=== PATIENT | female | born 2000 | race Asian ===

== ENCOUNTER 2024-10-31 12:56 | Outpatient (AMB) | payer OTHER, SELFPAY ==
--- OUTSIDE RECORDS SUMMARY | 2024-10-31 12:58 | XMS_ITS ---
Author Organization [facility] Address [address] [place] [address] Care Team Providers Care First Assistant Name Role Phone Breana Kumar MD Primary Care Provider Felicia Mcmillan Unavailable [phone] Allergies No Known Allergies REASON FOR VISIT Pcp-05/02/24, Wart(s) Social History Tobacco Use: Social History Observation Description Date Details (start date - stop date) Never Smoker NA - NA Tobacco Use/Smoking Question Answer Notes Are you a: nonsmoker Additional Findings: Tobacco Non-User Current no n-smoker Alcohol Screen Question Answer Notes Did you have a drink containing alcohol in the p ast year? Yes Points 0 Interpretation Negative Tobacco use other than smoking: Question Answer Notes Are you an other tobacco user? No Problems Problem Type SNOMED Code ICD Code Onset Dates Problem Status W/U Status Risk Notes Problem Plantar wart (00457259) Plantar wart (B07.0) Active confirmed Vital Signs Height 5 ft 7 in in 09/10/2024 Weight 105 lbs lbs 09/10/2024 BMI 16.44 kg/m2 09/10/2024 Blood pressure systolic 102 mm Hg 09/10/20 24 Blood pressure diastolic 67 mm Hg 024 Encounters Encounter Location Date Provider Diagnosis [facility] [address] [place] [address] 09/10/2024 Felicia Garcia Left foot pain M79.672 and Plantar wart B07.0 Assessments Encounter Date Diagnosis (ICD Code) Assessment Notes Treatment Notes Treatment Clinical Notes Section Notes 09/10/2024 Left foot pain (ICD-10 - M79.672) 09/10/2024 Plantar wart (ICD-10 - B07.0) Plan Of Treatment Next Appt Details Follow Up: prn, Reason: Procedure Notes * Category Sub-Category Detail Notes Wart Treatment Procedure Verruca, as desc ribed in exam, were debrided to pin- point bleeding margins with sterile 15 surgical blade, silver nitrate chemocautery applied, recomm. immune-boosting meds such as zinc,Pt defers any other forms of tx Progress Notes * Rey LINKOB:1999 (24 yo F)Acc No.[id number]:09/10/2024 Progress Notes Patient:?Sudha LINK Provider:?Felicia Garcia DPM :2000???Age:24 Y???Sex:Female D ate:09/10/2024 Address:[address] [place] [address] Pcp:Breana Kumar MD Subjective: * Chief Complaints: * ???Pcp-05/02/24Wart(s) * HPI: ???Skin problems:?Pt States PCP Visit: ?DATE?05/02/2024 ?Location:?Bottom, Forefoot, Left.?Aggravated by:?standing.? * ROS:?General/Constitutional:?Nausea?denies.?Vomiting?denies.?Hunger Thirst?denies.?Loss appetite?denies.?Chills?denies.?Fatigue?denies.?Fever?denies.?Night Sweats?denies.?Unexplained weight loss?denies.?Unexplained weight gain?denies.?HEENTM:?Dentures?denies.?Dizziness?denies.?Glasses/contacts?denies.?Retinopathy?de nies.?Blurred/double vision?denies.?TMJ?denies.?Discharge/drainage?denies.?Implants?denies.?Sore throat?denies.?Dental implants?denies.?Hard of hearing ?denies.?Difficulty chewing/swallowing/speaking?denies.?Nose bleeds?denies.?Sore mouth?denies.?Respiratory:?On Oxygen?denies.?Pneumonia/pleurisy?denies.?Bronchitis?denies.?Emphysema?denies.?C oughing?denies.?Cough blood?denies.?Shortness of breath?denies.?Wheezing?denies.?Cardiovascular:?Pacemaker?denies.?MVP?denies.?WPW?denies.?CHF?denies.?Heart attack?denies.?Septal defect?denies.?Rapid beat?denies.?Chest pain ?denies.?Atrial Fib.?denies.?Murmur/Palpitations?denies.?Gastrointestinal:?Hemorrhoids?denies.?Stomach/Abdominal pain?denies.?Dark blood stool?denies.?Irritable bowel ?denies.?Constipation?denies.?Diarrhea?denies.?Hematology:?Swelling?denies.?Clots?denies.?Varicose Veins?denies.?Bruising?denies.?Bleeding problem?denies.?Genitourinary:?Blood urine?denies.?Frequent/Painfu/urination/bladder control?denies.?Kidney stones?denies.?Infection (UTI)?denies.?Nephropathy?denies.?sex trans dis (STD)?denies.?Prostate?denies.?Musculoskeletal:?Hammertoes?denies.?Bunions?denies.?Back Pain?denies.?Muscle Cramps/ Resting?denies.?Muscle cramps / walking?denies.?Generalized aches and pains?denies.?Weakness?denies.?Integ.:?Slade?denies.?Scars?denies.?Corns/calluses?denies.?Ingrown nails?denies.?Painful nails?denies.?Open Sores?denies.?Rashes?denies.?Neurologic:?Difficulty sleeping?denies.?Brain disorder?denies.?Numbness?denies.?Balance trouble?denies.?Confusion?denies.?Fainting/blackouts?denies.?Tingling?denies.?Tr emors?denies.? * Medical History:? * Surgical History:?Denies Pas t Surgical History * Hospitalization/Major Diagno stic Procedure:?Denies Past Hospitalization * Family History:?Non-Contribu tory.? * Social History:?Tobacco Use:?Tobacco Use/Smoking?Are you a:?nonsmoker ?Additional Findings: Tobacco Non-User?Current non-smoker ?Tobacco use other than smoking?Are you an other tobacco user??No ???Drugs/Alcohol:?Drugs?Have you used drugs other than those for medical reasons in the past 12 months??No ?Alcohol Screen?Did you have a drink containing alcohol in the past year??Yes ?Points?0 ?Interpretation?Negative ???Miscellaneous:?Caffeine: yes, frequency: rarely. ?Marital status: single. * Medications:?None * Allergies:?N.K.D.A.yes[Aller gies Verified] Objective: * Vitals:?Ht: 5 ft 7 in, Wt:10 5 lbs, BMI:16.44, Shoe size: 7-7.5, BP:102/67mm Hg, Ht-cm: 170.18 cm, Wt-k.63 kg. 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.?ORIENTED:?person, place, and time.?Neurological: ?SENSORY:?Neurological exam reveals intact sensorium, pain sensation normal, vibration sensation intact, pinprick sensation is normal in the lower extremities, Pt denies, anesthesia, burning, paresthesia, tingling, B/L.?DEEP TENDON REFLEXES:?Achilles, 2/4, B/L.?Vascular: ?DP PULSES(B):?3/4, B/L.?PT PULSES(B):?3/4, B/L.?CAPILLARY FILL TIME:?immediate, all digits, B/L.?TROPHIC CONDITION-TEXTURE/ELASTICITY/TURGOR/HAIR GROWTH(B):?normal, B/L.?TEMPERTURE GRADIENT(C):?warm to cool, proximal to distal, B/L.?PIGMENTATION:?normal, B/L.?EDEMA(C):?absent, B/L.?Dermatologic: ?VERRUCA:?Reveals a Single , multi-loculated , mosaic-patterned, round, raised, flat-topped, petechial bleeding papule(s), with cauliflower appearance and interruption of skin lines, pain to lateral compression, and size estimated at 2 mm diameter, plantar Forefoot, LEFT.?Orthopedic: ?MUSCLE STRENGTH:?5/5 all groups in a symmetrical fashion , B/L.? Assessment: * Assessment: 1.?Left foot pain - M79.672? ??2.?Plantar wart - B07.0 (Primary)??? Plan: * Treatment: * Procedures:?Wart Treatment:?Procedure?Verruca, as described in exam, were debrided to pin-point bleeding margins with sterile 15 surgical blade, silver nitrate chemocautery applied, recomm. immune-boosting meds such as zinc,Pt defers any other forms of tx?.? * Procedure Codes:? * Preventive Medicine:? ??Counseling:?Discussion:?-02: Office or other outpatient visit for the evaluation and management of a new patient, which required a medically appropriate history and/or examination and STRAIGHTFORWARD level of MEDICAL DECISION MAKING, 1 SELF-LIMITED OR MINOR PROBLEM, MINIMAL- NO AMOUNT/COMPLEXITY OF DATA TO BE REVIEWED/ANALYZED, AND MINIMAL RISK OF COMPLICATION/MORBIDITY. The visit on the day of the encounter encompassed interpreting the data and educating the patient as to the nature of their condition, treatment options available according to their individual PMH, meds, allergies, and overall health/living conditions, as well as any potential risks or complications that may occur from a failure to adhere to, and participate in, the recommended course of therapy. The discussion included a complete verbal, and/or written explanation of the examination results, any x-rays taken, the proposed diagnosis, and outline of the treatment plan. A schedule for future care needs was also explained. The patient verbalized an understanding of the instructions at this time and agreed to be an active participant in their treatment. If the patient should think of any questions or concerns after the visit, I have encouraged the patient to call the office.?Verruca:?The patient was counseled on the diagnosis, numerous treatment options re: Verruca Plantaris and the fact that the lesions are caused by a virus and the difficulty in treating and the time that may be required. Recom Zinc to supplement the immune system.? * Follow Up:?prn * Images: * Sign off status: Completed true * Provider:?Felicia Garcia DPM Date:? Generated for Venita haq/Carlos/Nathan on:?10/31/2024 12:58 PM EST History and Physical Notes * HPI (History of Present Illness) Category Sub-Category Detail Notes Category Not es Skin problems Location: Bottom, Forefoot, Left Aggravated by: standing Pt States PCP Visit: DATE: 05/02/2024 Examination Category Sub-Category Detail Notes Category Not es Neurological SENSORY: Neurological exa m reveals intact sensorium, pain sensation normal, vibration sensation intact, pinprick sensation is normal in the lower extremities, Pt denies, anesthesia, burning, paresthesia, tingling, B/L DEEP TENDON REFLEXES: Achilles, 2/4, B/L Dermatologic VERRUCA: Reveals a Single , multi-loculated , mosaic-patterned, round, raised, flat-topped, petechial bleeding papule(s), with cauliflower appearance and interruption of skin lines, pain to lateral compression, and size estimated at 2 mm diameter, plantar Forefoot, LEFT Orthopedic MUSCLE STRENGTH: 5/5 all groups in a symm etrical fashion , B/L General Examination GENERAL APPEARANCE: Reveals a pleasant, alert, well- nourished, well-developed, well hydrated individual, who demonstrates proper attention to hygiene/body habitus, and is in no acute distress, Pt serves as own historian for office visit today ORIENTED: person, place, and t jeniffer Vascular DP PULSES (B): 3/4, B/L PT PULSES (B): 3/4, B/L CAPILLARY FILL TIME: immediate, all digi ts, B/L TEMPERTURE GRADIENT (C): warm to cool, p roximal to distal, B/L TROPHIC CONDITION-TEXTURE/ELASTICITY/TURGOR/HAIR GROWTH (B): normal, B/L EDEMA (C): absent, B/L PIGMENTATION: normal, B/L
--- OUTSIDE RECORDS SUMMARY | 2024-10-31 12:58 | XMS_ITS ---
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 Generated for Printi eun/Carlos/eTransmitting on:?10/31/2024 12:58 PM EST
--- OUTSIDE RECORDS SUMMARY | 2024-10-31 12:59 | XMS_ITS | Patient Health Record ---
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 Name Role Phone Breana Kumar MD Primary Care Provider Felicia Mcmillan Unavailable [phone] Allergies No Known Allergies Reason For Referral No Information Social History Tobacco Use: Social History Observation [...] W/U Status Risk Notes Problem Plantar wart ([id number]) Plantar wart (B07.0) Active confirmed Vital Signs Blood pressure diastolic 67 mm Hg 09/10/2024 Height 5 ft 7 in in 09/10/2024 Blood pressure systolic 102 mm Hg 09/10/2024 Weight 105 lbs lbs 09/10/2024 BMI 16.44 kg/m2 09/10/2024 Encounters Encounter Location Date Provider Diagnosis [facility] [address] [place] [address] 09/10/2024 Felicia Garcia Left foot pain M79.672 and Plantar wart B07.[address] [address] 05/26/2024 Felicia Garcia Assessments Encounter Date Diagnosis (ICD Code) Assessment Notes Treatment Notes Treatment Clinical Notes Section Notes 09/10/2024 Left foot pain (ICD-10 - M79.672) 09/10/2024 Plantar wart (ICD-10 - B07.0) Plan Of Treatment No Information Insurance Providers Payer Name Payer Address Payer Phone Subscriber Number Group Number Insured Name Patient Relationship to Insured Coverage Start Date Coverage End Date [facility] ([facility]) [address] [place] [id number] Sudha Chand Self - patient is the insured Medical (General) History Medical History History ICD Code covid-19 Warts Chicken pox
--- NOTE | 2024-10-31 13:23 | A.OFFPC_ITS ---
Vital Signs 10/31/24 13:26 Height 5 ft 7.25 in Weight 107 lb 2 oz BMI 16.7 BP 108/70 Blood Pressure Location Rt brachial Position Sitting Pulse 106 H Pulse Source Pulse Oximeter Pulse Oximetry (%) 98 Oxygen Delivery Method Room Air Intake Visit Reasons: Regular Check up Intake Note: New patient visit Batch Room Technician Required: No Allergies No Known Allergies Allergy (Verified 10/31/24 13:23) Tobacco use date assessed: 10/31/24 Dental Screening Dental Screen Date: 10/31/24 Did you have a dental visit in the last 12 months?: Yes Did you have a dental problem in the last 6 months where you did not have access to dental care?: No Was dental information given to patient?: Patient has dentist HPI HPI Comments History of Present Illness Details 24 year old female to establish care. Sh daphnie is transferring from pediatrics-[facility]. Records have not yet been received No chronic conditions. 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 HEENT: Denies changes in vision and hearing. RESPIRATORY: Denies SOB and cough. CV: Denies palpitations and CP GI: Denies abdominal pain, nausea, vomiting and diarrhea. : Denies dysuria and urinary frequency. MSK: Denies new myalgia and joint pain. SKIN: Denies rash and pruritus. NEUROLOGICAL: Denies headache PSYCHIATRIC: Denies recent changes in mood. PHYSICAL EXAM: GENERAL: Alert and oriented x 3. NAD EYES: EOMI. Anicteric. HENT: Moist mucous membranes. No scleral icterus. No cervical lymphadenopathy. LUNGS: Clear to auscultation bilaterally. CARDIOVASCULAR: Regular rate and rhythm. No murmur. No JVD. ABDOMEN: Soft, non-tender +bs EXTREMITIES: No edema. Non-tender. SKIN: No rashes or lesions. Warm. NEUROLOGIC: No focal neurological deficits. CN II-XII grossly intact PSYCHIATRIC: Cooperative. Appropriate mood and affect [facility] Surgical History (Updated 10/31/24 @ 13:25 by Hiwot Randle CMA) No pertinent past surgical history Family History (Updated 10/31/24 @ 13:25 by Hiwot Randle CMA) Other Family history unknown Social History (Updated 10/31/24 @ 13:25 by ROSALINDA Crisostomo Housing: House Alcohol intake: current Comment: rarely Patient Tobacco Use Status: Never used Tobacco e-Cigarette/Vaping Use: Never Used Second Hand Smoke Exposure: No Use of substances other than those prescribed or required for medical reasons: No service: No Current occupational status: employed 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 1. Little interest or pleasure in doing things: not at all 2. Feeling down, depressed, or hopeless: not at all 3. Trouble falling or staying asleep, or sleeping too much: not at all 4. Feeling tired or having little energy: not at all 5. Poor appetite or overeating: not at all 6. Feeling bad about yourself - or that you are a failure or have let yourself or your family down: not at all 7. Trouble concentrating on things, such as reading the newspaper or watching television: not at all 8. Moving or speaking so slowly that other people could have noticed. Or the opposite - being so fidgety or restless that you have been moving around a lot more than usual: not at all 9. Thoughts that you would be better off or of hurting yourself in some way: not at all Total score: 0 Depression Screening Interpretation: Negative Depression Screening Done: Yes 26543 - PHQ-9 Billing: Yes Source: Developed by Drs. Gennaro Calle, Jayashree Glez, Parrish Portillo and colleagues, with an educational diana from [employer]. Thrive Questionnaire Date Thrive assessed: 10/28/24 I am a: Patient What is your living situation today?: I have a steady place to live Within the past 12 months, did the food you bought not last and you didn't have the money to get more?: Never true Within the past 12 months, did you worry whether your food would run out before you got money to buy more?: Never true Do you have trouble paying for medicines?: No Do you have trouble getting transportation to medical appointments?: No Do you have trouble paying your heating and electricity bill?: No Do you have trouble taking care of your child, family member or friend?: No Do you have trouble with day-to-day activities such as bathing, preparing meals, shopping, managing finances, etc.?: No Are you currently unemployed and looking for a job?: No Are you interested in more education?: No Please select the resources that you would like help with: None Currently or been in a relationship where the following occur: No concerns reported THRIVE Score: 0 AUDIT C Alcohol Use Questionnaire (AUDIT-C) 1. How often do you have a drink containing alcohol?: Monthly or less 2. How many drinks containing alcohol do you have on a typical day when you are drinking?: 1 or 2 3. How often do you have six or more drinks on one occasion?: Never Total Score: 1 YASHIRA-7 AMB Questionnaire YASHIRA-7 Feeling nervous, anxious, or on edge: 0 = Not at all Not being able to stop or control worryin = Not at all Worrying too much about different things: 0 = Not at all Trouble relaxin = Not at all Being so restless that it is hard to sit still: 0 = Not at all Becoming easily annoyed or irritable: 0 = Not at all Feeling afraid as if something awful might happen: 0 = Not at all Total YASHIRA-7 score (0-4 normal; 5-9 mild; 10-14 moderate; 15-21 severe): 0 Source: Developed by Drs. Gennaro Calle, Jayashree Glez, Parrish Portillo and colleagues, with an educational diana from [employer]. Physical exam (Primary Care) Vital Signs: Last Vital Signs Pulse 106 H 10/31/24 13:26 BP 108/70 10/31/24 13:26 Pulse Ox 98 10/31/24 13:26 Oxygen Delivery Method Room Air 10/31/24 13:26 BMI result Body Mass Index 16.7 Tobacco/Smoking Status: Tobacco use Status Tobacco use date assessed 10/31/24 10/31/24 13:29 Patient Tobacco Use Status Never used Tobacco 10/31/24 13:29 e-Cigarette/Vaping Use Never Used 10/31/24 13:29 PHQ-9: PHQ-9 Score PHQ-9: Total score 0 10/31/24 13:29 Depression Screening Interpretation: Negative Thrive Assessment: Date of Thrive Assessment Date Thrive assessed 10/28/24 10/31/24 13:29 Currently or been in a relationship where the following occur: No concerns reported Coding Level of Care Code New Pt Level 3 (05356) Complex EM visit Add On G2211 Diagnoses Encounter to establish care Z76.89 Additional Codes PHQ-9 - 00691 - PHQ-9 Billing: Yes ([id number]) Assessment & Plan Assessment & Plan (1) Encounter to establish care: Code(s): Z76.89 - Persons encountering health services in other specified circumstances Category: Medical Plan: 24 year old female to establish care. past medical, surgical, social, family history reviewed. chart updated Orders: Orders Comprehensive Met. Panel Today Z13.0 - Encounter for screening for diseases of the blood and blood-forming organs and certain disorders involving the immune mechanism, Z13.220 - Encounter for screening for lipoid disorders, Z13.228 - Encounter for screening for other metabolic disorders Complete Blood Count Auto Diff Today Z13.0 - Encounter for screening for diseases of the blood and blood-forming organs and certain disorders involving the immune mechanism, Z13.220 - Encounter for screening for lipoid disorders, Z13.228 - Encounter for screening for other metabolic disorders Lipid Panel Today Z13.0 - Encounter for screening for diseases of the blood and blood-forming organs and certain disorders involving the immune mechanism, Z13.220 - Encounter for screening for lipoid disorders, Z13.228 - Encounter for screening for other metabolic disorders TSH reflex Free T4 Today Z13.0 - Encounter for screening for diseases of the blood and blood-forming organs and certain disorders involving the immune mechanism, Z13.220 - Encounter for screening for lipoid disorders, Z13.228 - Encounter for screening for other metabolic disorders
[2024-10-31 13:26] VITALS: BP 108/70; PULSE 106; O2SAT 98; BMI 16.7
== END 2024-10-31 13:42 | disposition home or self-care (01) ==
PROVIDERS: PCP Internal Medicine; Visit Provider Internal Medicine
DX: Z76.89 Persons encountering health services in other specified circumstances (principal)

== ENCOUNTER → 2024-10-31 12:56 | Outpatient (BNVA) | payer OTHER, SELFPAY | PROVIDERS: PCP Internal Medicine; Visit Provider Internal Medicine | DX: Z76.89 Persons encountering health services in other specified circumstances (principal) | CPT/HCPCS: 96127 ==

== ENCOUNTER 2024-10-31 13:48 | Outpatient (REF) | payer OTHER, SELFPAY ==
--- OUTSIDE RECORDS SUMMARY | 2024-10-31 13:50 | XMS_ITS | Continuity of Care Document ---
Author Name [facility] Organization [facility] Care Team Providers Care Mitten Stitcher Name Role Phone [facility] Unavailable Unavailable Social History Combined list of available smoking, tobacco, and other social history from Department of Defense and Veterans Affairs facilities. Social History Type Response Date Comment Sourc e This section is an empty social history section. [facility]
[2024-10-31 17:33] LABS: MANUAL DIFF FLAG NO
[2024-10-31 17:38] LABS: Basophils Percent Auto 0.8 % (0-2); Eosinophils Absolute Auto 0.1 X10*3/uL (0.0-0.4); Eosinophils Percent Auto 1.8 % (0-4); Hematocrit 41.9 % (37.0-47.0); Hemoglobin 14.3 g/dl (12.0-16.0); Imm Gran Abs Auto 0.01 X10*3/uL (0.00-0.03); Imm Gran Pct Auto 0.2 % (0.0-0.4); Lymphocytes Absolute Auto 1.7 X10*3/uL (1.2-4.9); Lymphocytes Percent Auto 33.5 % (20-40); Mean Corpuscular HGB Conc 34.1 g/dl (31.0-35.0); Mean Corpuscular Volume 90.7 fL (80.0-98.0); Monocytes Absolute Auto 0.4 X10*3/uL (0.1-1.2); Monocytes Percent Auto 7.3 % (2-11); Neutrophils Absolute Auto 2.8 x10*3/uL (2.0-8.3); Neutrophils Percent Auto 56.4 % (45-73); Platelet Count 274 X10*3/uL (160-400); Red Blood Count 4.62 X10*6/uL (4.20-5.50); Red Cell Distribution Width 11.9 % (11.0-16.0); White Blood Count 4.9 X10*3/uL (4.8-10.8)
[2024-10-31 17:55] LABS: Alanine Aminotransferase 15 U/L (0-31); Albumin Level 4.4 g/dL (3.5-5.0); Alkaline Phosphatase 43 U/L (39-117); Anion Gap 8 (12-20); Aspartate Amino Transferase 19 U/L (5-31); Blood Urea Nitrogen 7 mg/dL (9-16); Calcium 9.5 mg/dL (8.4-10.2); Carbon Dioxide 27 mmol/L (22-29); Chloride 109 mmol/L (96-108); Cholesterol 158 mg/dL (<200); Estimated Glomerular Filt Rate > 60; Glucose Random 96 mg/dL (60-115); HDL Cholesterol 76 mg/dL (>40); LDL Cholesterol Calculated 74 mg/dL (<100); Sodium 140 mmol/L (135-145); Total Protein 7.4 g/dL (6.5-8.0); Triglycerides 42 mg/dL (<150)
[2024-10-31 18:09] LABS: TSH reflex Free T4 0.36 uIU/mL (0.32-4.0)
== END 2024-10-31 13:49 | disposition home or self-care (01) ==
LOC: HO.WFDLDS 13:48
PROVIDERS: Visit Provider Internal Medicine
DX: Z13.220 Encounter for screening for lipoid disorders (principal); Z13.0 Encounter for screening for diseases of the blood and blood-forming organs and certain disorders involving the immune mechanism; Z13.228 Encounter for screening for other metabolic disorders
CPT/HCPCS: 36415; 80053; 80061; 84443; 85025

== ENCOUNTER 2025-01-16 09:14 | Outpatient (AMB) | payer OTHER, SELFPAY ==
--- NOTE | 2025-01-16 09:49 | AM.OFFWIN_ITS ---
Intake Vital Signs 01/16/25 09:52 Height 5 ft 7.25 in Weight 108 lb 4 oz BMI 16.8 BP 102/70 Blood Pressure Location Lt brachial Position Sitting Respiration 12 Pulse 108 H Pulse Source Pulse Oximeter Temp 98.7 F Temp Source Oral Pulse Oximetry (%) 98 Oxygen Delivery Method Room Air Intake Visit Reasons: congested/bad cough Intake Note: Patient c/o congested, and coughing x 1 week Patient Tobacco Use Status: Never used Tobacco Allergies No Known Allergies Allergy (Verified 01/16/25 10:05) Medication List - Last Reconciled 01/16/25 by XIN Bar No Known Home Meds Do you need a note to return to daycare/school/sports/work: No HPI HPI Comments History of Present Illness Details History - The patient is a 24-year-old female pr esenting with cough and congestion. - Symptoms commenced a week prior and es calated from mild to more severe despite using OTC medications. - COVID-19 tests were conducted at the o nset of symptoms and again yesterday, both negative. - No recorded fever, and the patient has used medications containing Tylenol. - UTD on flu, covid and tdap - There is no history of recent internat ional travel and no history of asthma. - Occupational exposure is suspected as the source of infection. 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 No apparent distress Eyes: Sclera and conjunctiva clear bilaterally Nose: Nares patent, turbinates mild erythema, no sinus tenderness with palpation bilaterally Ears: Tympanic membranes intact and clear bilaterally Throat: Moist mucosa membrane, pharynx within normal limits Cardiovascular: Regular rhythm, mild tachy - reports baseline Respiratory: Clear to auscultation bilaterally, occassional dry cough w/o distress Results - COVID-19 Test: Negative (2 tests condu cted?initial onset and yesterday) - Swab Test for COVID, Influenza, and RS V scheduled, results pending. Discussion Notes I discussed with the patient the negative results of her COVID-19 tests. Given her current symptoms of cough and congestion, a swab test for COVID, Influenza, and RSV has been conducted. The results will be available by the end of the business day. It was advised that should the test return positive for Influenza, Tamiflu will be recommended as treatment. Should it be COVID-19, the choice to use Paxlovid will be personal. If the test results indicate RSV, symptomatic treatment will follow. I further advised against using NyQuil while on the prescribed cough suppressant Tessalon to prevent duplication of medication effects. The importance of accessing test results and ensuring follow-up communication via the patient portal was underscored. Assessment and Plan 1. Acute Viral Upper Respiratory Infecti on: The presentation is typical of an acute viral upper respiratory infection. A swab test for COVID, influenza, and RSV has been ordered. Tessalon Perles are prescribed for symptom management. The patient will use flu, RSV, or COVID-19 results to guide specific antiviral treatment options, like Tamiflu or Paxlovid, on a symptomatic basis. Follow-up and monitoring via the patient portal are encouraged. Patient Instructions - Begin taking Tessalon as directed for cough suppression. - Avoid using NyQuil and DayQuil while o n Tessalon to prevent overlapping medication effects. - Await contact for test results via the patient portal; set up access as described before leaving the facility. - If confirmed with influenza, Tamiflu w ill be provided; if COVID-19, discuss whether to initiate Paxlovid based on preference. - Monitor symptoms and consult if there' s no improvement or if the condition worsens. Consent Patient was informed and verbally consented to the use of an ambient scribe for clinic note documentation during this visit. Total time spent caring for the patient today was 30 minutes. This includes time spent before the visit reviewing the chart, time spent during the visit, and time spent after the visit on documentation, reviewing laboratory results, diagnostic imaging, medications, performing a medically necessary evaluation, counseling on diagnoses, care coordination, ordering appropriate tests, ordering appropriate medications, review of tests performed by other providers, reporting test results with the patient, communication with other healthcare providers. 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 Orders: Orders SARS-CoV2/FLU/RSV Today R09.89 - Other specified symptoms and signs involving the circulatory and respiratory systems Medications: New benzonatate 100 mg PO TID 10 days PRN 30 caps 1RF cough Coding Level of Care Code Est Pt Level 4 (50618) Diagnoses Viral URI with cough J06.9
[2025-01-16 09:52] VITALS: BP 102/70; PULSE 108; RESP 12; TEMP 37.1; O2SAT 98; BMI 16.8
== END 2025-01-16 11:00 | disposition home or self-care (01) ==
PROVIDERS: PCP Internal Medicine; Visit Provider Nurse Practitioner Family
DX: J06.9 Acute upper respiratory infection, unspecified (principal)

== ENCOUNTER 2025-01-16 09:14 | Outpatient (REF) | payer OTHER, SELFPAY ==
[2025-01-16 12:20] LABS: Influenza A PCR NEGATIVE (Negative); Influenza B PCR NEGATIVE (Negative); Resp Syncy Virus RNA Qual PCR NEGATIVE (Negative); SARS COV2 PCR INHOUSE NEGATIVE (Negative)
== END 2025-01-16 09:15 | disposition home or self-care (01) ==
LOC: HO.LNP 09:14
PROVIDERS: PCP Internal Medicine; Visit Provider Nurse Practitioner Family
DX: R05.8 Other specified cough (principal); R09.89 Other specified symptoms and signs involving the circulatory and respiratory systems
CPT/HCPCS: 0241U

== ENCOUNTER 2025-09-23 08:02 | Outpatient (AMB) | payer OTHER, SELFPAY ==
--- NOTE | 2025-09-23 08:04 | AM.OFFWIN_ITS ---
Intake Vital Signs 09/23/25 08:09 Height 5 ft 7.25 in Weight 48.534 kg BMI 16.6 BP 110/76 Blood Pressure Location Lt brachial Position Sitting Pulse 103 H Pulse Source Pulse Oximeter Pulse Oximetry (%) 99 Oxygen Delivery Method Room Air Intake Visit Reasons: EP-lt ear pain Intake Note: Patient presents c/o sharp pain behind left ear that radiates from head to neck when eating hard foods x3 days. Patient Tobacco Use Status: Never used Tobacco Allergies No Known Allergies Allergy (Verified 09/23/25 08:11) Do you need a note to return to daycare/school/sports/work: No HPI HPI Comments History of Present Illness Details Chief Complaint: ?Pain right behind my ear that shoots down my neck and up my head when I eat hard foods.? History of Present Illness: The patient reports approximately 36 hours of localized pain ?right behind the ear,? near the bony area, worsened by chewing hard foods such as chips. Feels weird with sour foods. The pain shoots down the neck and up the head. She denies pain within the ear canal and notes that jaw clenching does not reproduce the pain. She notes a sensation of mild swelling in the area and states she normally produces ?a lot of saliva,? with no recent change. She reports a history of chronic postnasal drip, as diagnosed by her embedded software programmer, which is a yearly, non-seasonal issue and was discussed as a possible contributor to her symptoms. She denies recent upper respiratory illness, fever, chills, chest pain, shortness of breath, dysphagia, or trauma/head injury. She continues to eat despite discomfort because of hunger. Differential Diagnosis * Sialolithiasis ( most likely) * Sialadenitis (infectious or non-infectious) * Viral pharyngitis * Parotitis (bacterial or viral) * Temporomandibular joint disorder * Dental abscess * Lymphadenopathy * Mastoiditis * Referred pain from chronic postnasal drip * Assessment Sialolithiasis is the most likely diagnosis, given the patient's history of pain near the right pre-auricular/parotid region triggered by eating, mild swelling over the salivary gland, and absence of systemic symptoms such as fever, chills, or dysphagia. The physical exam findings of localized tenderness and swelling further support this diagnosis. 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 Nontoxic appering * Head/Neck: Mild swelling/tenderness over right pre-auricular/parotid region corresponding to salivary gland; no external erythema. No mastoid tenderness. * Mouth/Throat: Posterior pharynx with cobblestoning; no tonsillar exudate, no intraoral lesions; no palpable lymphadenopathy. * Ears: External ears normal, no mastoid tenderness. TM normal b/l * CV: RRR * Lungs: CTA * Neuro: A&O x 4 Vital Signs: Last Vital Signs Pulse 103 H 09/23/25 08:09 BP 110/76 09/23/25 08:09 Pulse Ox 99 09/23/25 08:09 Oxygen Delivery Method Room Air 09/23/25 08:09 BMI result Body Mass Index 16.6 vss Assessment & Plan Assessment & Plan (1) Sialolithiasis: Code(s): K11.5 - Sialolithiasis Plan Take your medications as prescribed. If you were prescribed antibiotics today, it is important that you take your medication to their entirety, do not skip any doses, do not finish them early. Follow-up with your primary care provider this week. Go to the emergency department with new or worsening symptoms. In case of emergency call 911 Coding Level of Care Code Est Pt Level 3 (90864) Diagnoses Sialolithiasis K11.5
--- OUTSIDE RECORDS SUMMARY | 2025-09-23 08:07 | XMS_ITS | Clinical Summary ---
Author Organization [facility] Address [address] [place] [id number] Phone Care Team Providers Care Program Director Scouting Name Role Phone Filomena Pedro NP Primary Care Provider [phone] Allergies No known active allergies Medications No known medications Active Problems Problem Noted Date Diagnosed Date Well adult exam 04/27/2023 Assessment & Plan (05/02/2024 2:07 PM EDT): Growing and developing well Patient seeing [facility] regularly Has an apt scheduled with adult PCP in October Discussed back pain that seems to be improving with yoga. If pain persists despite yoga, will refer for PT WCC counseling completed Young Adult Plan: Get 8-9 hours of sleep per night. Eat healthy diet including 5 servings fruits and vegetables, no daily soda or juice, 3 servings calcium rich foods daily. Get one hour of exercise daily. Wear seatbelt in car, helmet while riding bike. Dental checkup every 6 months If wears eyeglasses or contacts, vision exam yearly Personal space, safe sex, bullying counseling done. Assessment & Plan (04/27/2023 10:39 AM EDT): Sudha is doing well. No concerns today Will do screening blood work today We will see her back in one year or sooner if needed Young Adult Plan: Get 8-9 hours of sleep per night. Eat healthy diet including 5 servings fruits and vegetables, no daily soda or juice, 3 servings calcium rich foods daily. Get one hour of exercise daily. Wear seatbelt in car, helmet while riding bike. Dental checkup every 6 months If wears eyeglasses or contacts, vision exam yearly Personal space, safe sex, bullying counseling done. Resolved Problems Problem Noted Date Diagnosed Date Resolved Date Allergic cough 05/18/2020 05/02/2024 Assessment & Plan (05/18/2020 11:30 PM EDT): Appears to have a dry cough associated with allergies. No obvious viral symptoms and COVID testing is negative (05/16/2020). Recommended trial of cetirizine to try to clear dry cough. Clearing her to go back to work. Tension-type headache, not intractable 03/09/2020 04/27/2023 Assessment & Plan (03/09/2020 1:46 PM EDT): Likely tension headache by history. Recommended treatment with ibuprofen. No concern for infectious or other issues at this time. Herpes simplex infection 03/06/202004/2023 Assessment & Plan (03/09/2020 1:48 PM EDT): Chin lesions are resolving. Continue with acyclovir treatment. Assessment & Plan (03/06/2020 2:20 PM EDT): History and exam consistent with herpes simplex cold sore. Will treat with topical acyclovir. 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 04/24/2020 Overview (04/19/2018): Chondromalacia (733.92) Onset: 04/01/2015 Added by: Macy Castañeda Immunizations Immunization Administration Dates Next Due DTaP 5 01/26/2006, 3,06/27/2002,03/24,12/12/2001 H1N1 Nasal 08/14/2009 HPV Vaccine 9 Valent 04/11/2018,06/09/2016,04/03 Hep A, ped/adol 04/05/2017,04/03/2016 Hep B, ped/adol 08/15/2004,08/13/2003,06/27/2002 Hib (PRP-T) 06/27/2002,03/24/2002,12/12/2001 IPV 01/26/2006, 3,03/24/2002,12/12 Influenza, injectable, MDCK, preservative free, quadrivalent 08/25/2021 Influenza, injectable, quadr ivalent, preservative free 07/22/2020,09/18/2018,10/20/2017,09/04,11/08/2015 Influenza, injectable, trivalent 08/06/2014,09/21,08/06/2009 Influenza, injectable, triva lent, preservative free 07/21/2013,10/01/2012 MMR 01/26/2006,08/13/2003 Meningococcal Conj (Menactra) MCV4P 04/05/2017,0 03/11/2012 PPD Test 04/08/2019,04/01/2019,12/02/2001 Pneumococcal Conjugate 08/15/2004,2001,03/24/2002,12/12 Tdap 04/20/2022,03/11/2012 Varicella 04/08/2019,08/13/2003 Family History Medical History Relation Name Comments No Known Problems Father Eamon No Known Problems Mother Brenda No Known Problems Sister Antony Relation Name Status Comments Father Eamon Alive Mother Brenda Alive Sister Antony Alive Social History Tobacco Use Types Packs/Day Years Used Date Smoking Tobacco: Never Smokeless Tobacco: Never Alcohol Use Standard Drinks/Week Comments Yes 0 (1 standard drink = 0.6 oz pur e alcohol) Hunger/Food Answer Date Recorded In the last 12 months, did y ou or your family ever eat less than you felt you should because there wasn't enough money for food? No 04/21/2023 Stable Housing Answer Date Recorded Are you worried that in the next 2 months you may not have stable housing? No 04/21/2023 Transportation Concerns Answer Date Rec orded In the last 12 months, have you or your family ever had to go without healthcare because you didn't have a way to get there? No 04/21/2023 Hazards in Home Answer Date Recorded Think about the place you li ve. Do you have problems with any of the following? Pests (mice or roaches), mold, no/not working smoke detectors, water leaks, no window guards. No 2022 Financing Utilities Answer Date Recorde d In the last 12 months, has t he electric, gas, oil, or water company threatened to shut off your services in your home? No 04/21/2023 Safety at Home Answer Date Recorded Are you or your family worried about feeling saf e in your home? No 04/21/2023 Outside Support Answer Date Recorded Do you feel that you need mo re support from other people or programs to help you care for yourself or your family? No 04/21/2023 Understanding Health Concerns Answer Da te Recorded Do you need help understandi ng your or your child's healthcare needs (diagnosis, medications, plan, etc.)? No 04/21/2023 Financing Health Concerns Answer Date R ecorded In the last 12 months, was t here a time when your child needed to see a doctor or get medications or supplies but could not because of cost? No 04/21/2023 Missing School or Work Answer Date Andrews rded Did you or your child miss s chool or work because of a health problem that could have been avoided? No 04/21/2023 Comments No Sex and Gender Information Value Date Recorded Sex Assigned at Female 05/02/2024 1:51 PM EDT Legal Sex Female 6:40 PM EDT Gender Identity Female 05/02/2024 1:51 PM EDT Sexual Orientation Straight 04/27/2023 10 :00 AM EDT Last Filed Vital Signs Vital Sign Reading Time Taken Comments Blood Pressure 122/78 05/02/2024 1:38 PM EDT Pulse 129 05/02/2024 1:38 PM EDT Temperature 36.4 C (97.6 F) 05/02/2024 1:38 PM EDT Respiratory Rate - - Oxygen Saturation - - Inhaled Oxygen Concentration - - Weight 49.2 kg (108 lb 6.4 oz) 05/02/2024 1:38 P M EDT Height 170.2 cm (5' 7 ) 05/02/2024 1:38 PM EDT Body Mass Index 16.98 05/02/2024 1:38 PM EDT Plan of Treatment Health Maintenance Due Date Last Done Comments Influenza Vaccines (#1) 2025 08/02/20, 07/26/2022, 08/25/2021, Additional history exists COVID-19 Vaccine ( - 2024- season) 2025 10/28/2021, 03/18/2021, 02/25/2021 DTaP,Tdap,and Td Vaccines (8 - Td or Tdap) 04/20/2032 04/20/2022, 03/11/2012, 01/26/2006, Additional history exists HIB Vaccines Completed 06/27/2002, 12/2001, 12/12/2001 Hepatitis B Vaccines Completed 08/15/2004, 08/13/2003, 06/27/2002 Pneumococcal Vaccine Completed 08/15/2004, 06/27/2002, 03/24/2002, Additional history exists IPV Vaccines Completed 01/26/2006, 07/23, 03/24/2002, Additional history exists MMR Vaccines Completed 01/26/2006, 08/13/2003 Hepatitis A Vaccines Completed 04/05/2017, 04/03/20 16 Meningococcal Vaccine Completed 04/05/2017, 012 HPV Vaccines Completed 04/11/2018, 05/22, 04/03/2016 Varicella Vaccines Completed 04/08/2019, 08/13/2003 Men B Vaccine Aged Out No longer elig ible based on patient's age to complete this topic Procedures * Due to [place] [employer] law, this organization might not be sharing sensitive test results. Procedure Name Priority Date/Time Associated Diagnosis Comments CHLAMYDIA AND GONORRHEA, AMPLIFIED Routine 05/02/2024 1:55 PM EDT Screening for STD (sexually transmitted disease) from Last 3 Months or Most Recently Relevant to Health Maintenance Results * Due to [place] [employer] law, this organization might not be sharing sensitive test results. * Chlamydia and Gonorrhea, Amplified (05/02/2024 1:55 PM EDT) C trach HERNNÁ Negative Negative [facility] N gonorrhoeae HERNÁN Negative Negative [facility] Swab (Vagina) 05/02/2024 1:5 5 PM EDT 05/02/2024 Comment:VAGINAL Narrative [facility] - 05/05/2024 4:07 PM EDT Performed at: - [facility] [address], [address], [place] [id number] Final Dressing Cutter: Shubham Quintana MD, Phone: [phone] Filomena Pedro NP LAB MICROBIOLOGY - GENERAL ORD ERABLES Final Result Performing Organization Address City/State/[facility] Co de Phone Number [facility] [address] [place] [address] from Last 3 Months or Most Recently Relevant to Health Maintenance [place] [id number] [facility] Care Teams Program Director Scouting Relationship Specialty Start Date End Date Filomena Pedro NP [facility] [place] [id number] PCP - General Pediatrics 04/10/23
--- OUTSIDE RECORDS SUMMARY | 2025-09-23 08:07 | XMS_ITS | Encounter Summary ---
Author Organization [facility] Address [address] [place] [address] Phone Care Team Providers Care Client Business Manager Name Role Phone Filomena Pedro [employer] Primary Care Provider [phone] Encounter Details Date Type Department Care Team (Late st Contact Info) Description 03/09/2011 Conversion Encounter [facility] [address] [place] [address] [place] [id number] Social History Tobacco Use Types Packs/Day Years Used Date Smoking Tobacco: Never Assessed Comments Unknown Sex and Gender Information Value Date Recorded Sex Assigned at Female 05/02/2024 1:51 PM EDT Legal Sex Female 6:40 PM EDT Gender Identity Female 05/02/2024 1:51 PM EDT Sexual Orientation Straight 04/27/2023 10 :00 AM EDT documented as of this encounter Plan of Treatment Not on file documented as of this encounter Visit Diagnoses Not on filedocumented in this encounter Care Teams Client Business Manager Relationship Specialty Start Date End Date Filomena Pedro NP [address] [place] [address] [place] [id number] PCP - General Pediatrics 04/10/23 documented as of this encounter
[2025-09-23 08:09] VITALS: BP 110/76; PULSE 103; O2SAT 99; BMI 16.6
== END 2025-09-23 08:47 | disposition home or self-care (01) ==
PROVIDERS: PCP Internal Medicine; Visit Provider Physician Assistant
DX: K11.5 Sialolithiasis (principal)